=== PATIENT | female | born 1945 | race Caucasian/White ===

== ENCOUNTER → 2020-08-10 | Outpatient (CLI) | payer MEDICARE, BC ==
[~2020-08-10] MED LIST: ELIQUIS5 MG PO; FLECAINIDE ACE150 MG PO; FUROSEMIDE40 MG PO; HYDROCODON-ACE1 EAC4 PO; LEVOTHYROXINE50 MC1 PO; LIPITOR10 MG PO; NORVASC5 MG PO; PRINIVIL20 MG PO
[2020-08-10 11:29] LABS: RED BLOOD COUNT 4.81 M/UL (4.00-5.10); WHITE BLOOD COUNT 8.6 K/UL (4.5-11.0)
== END ==
LOC: OPSV2 10:28
PROVIDERS: Obstetrics & Gynecology
DX: Z01.818 Encounter for other preprocedural examination (principal); N83.209 Unspecified ovarian cyst, unspecified side; R94.31 Abnormal electrocardiogram [ECG] [EKG]; R00.1 Bradycardia, unspecified
CPT/HCPCS: 36415; 71046; 80048; 81001; 85025; 93005

== ENCOUNTER 2020-08-22 07:51 | Day surgery (SDC) | payer MEDICARE, BC ==
[~2020-08-22] VITALS: Ht 157.5 cm; Wt 99.8 kg
[2020-08-22] MEDS ORDERED: FUROSEMIDE40 MG PO (09:20)
[2020-08-22] MEDS ORDERED: ELIQUIS5 MG PO (09:20)
[2020-08-22] MEDS ORDERED: LIPITOR10 MG PO (09:20)
[2020-08-22] MEDS ORDERED: NORVASC5 MG PO (09:20)
[2020-08-22] MEDS ORDERED: PRINIVIL20 MG PO (09:21)
[2020-08-22] MEDS ORDERED: LEVOTHYROXINE50 MC1 PO (09:21)
[2020-08-22] MEDS ORDERED: FLECAINIDE ACE150 MG PO (09:21)
[2020-08-22] MEDS ORDERED: HYDROCODON-ACE1 EAC4 PO (11:33)
[2020-08-23 04:21] LABS: HEMOGLOBIN 13.6 gm/dl (12.3-15.3)
== END 2020-08-23 09:40 | disposition home or self-care (01) ==
LOC: OR 07:51 → MED SURG 4 14:03 → OR 08-23 09:40
PROVIDERS: Obstetrics & Gynecology
DX: D27.1 Benign neoplasm of left ovary (principal); D27.0 Benign neoplasm of right ovary; N83.8 Other noninflammatory disorders of ovary, fallopian tube and broad ligament; K66.0 Peritoneal adhesions (postprocedural) (postinfection); I10 Essential (primary) hypertension; I48.91 Unspecified atrial fibrillation; K21.9 Gastro-esophageal reflux disease without esophagitis; E07.9 Disorder of thyroid, unspecified; Z90.710 Acquired absence of both cervix and uterus; Z88.6 Allergy status to analgesic agent; Z79.01 Long term (current) use of anticoagulants; Z79.899 Other long term (current) drug therapy
CPT/HCPCS: 36415; 85014; 85018; J0690; J1100; J2001; J2405; J2704; J2710; J2795; J3010; J7120